=== PATIENT | female | born 1960 | race Caucasian/White ===

== ENCOUNTER → 2017-08-06 | Emergency (ER) | payer OTHER ==
[~2017-08-06] VITALS: Ht 152.4 cm; Wt 90.7 kg
[~2017-08-06] MED LIST: BEVESPI AEROS10.7 GM; IPRAT-ALBUT 0.5-3 ML IH; MEDROLPACK PO; MUCINEX D ER 11 EACH PO; NICOTINE P1 PATCH .1; ORPH100T PO; PROMETH-CODEIN 65 ML PO; VENTOLIN HFA18 GM
== END | disposition home or self-care (01) ==
LOC: ER 12:47
DX: J45.30 Mild persistent asthma, uncomplicated (principal)

== ENCOUNTER 2017-08-26 12:12 | Inpatient (IN) | payer OTHER ==
[~2017-08-26] VITALS: Ht 154.9 cm; Wt 93.9 kg
[2017-08-26] MEDS ORDERED: MUCUS RELIEF400 MG (12:23)
[2017-08-26] MEDS ORDERED: PREDNISOLO20 MG/5 ML (12:24)
[2017-08-26] MEDS ORDERED: BEVESPI AEROS10.7 GM (12:24)
[2017-08-26] MEDS ORDERED: VENTOLIN HFA18 GM (12:24)
[2017-08-31] MEDS ORDERED: MEDROLPACK PO (15:46)
== END 2017-08-31 17:11 | disposition home or self-care (01) | DRG 202 ==
LOC: ER 12:12 → MEDJ 08-27 11:04
PROC: 3E0F7GC Introduction of Other Therapeutic Substance into Respiratory Tract, Via Natural or Artificial Opening (ICD-10-PCS; principal; 2017-08-27)
DX: J45.31 Mild persistent asthma with (acute) exacerbation (principal); J44.1 Chronic obstructive pulmonary disease with (acute) exacerbation; R09.02 Hypoxemia; E11.65 Type 2 diabetes mellitus with hyperglycemia; T38.0X5A Adverse effect of glucocorticoids and synthetic analogues, initial encounter; E07.89 Other specified disorders of thyroid

== ENCOUNTER 2017-12-24 12:00 | Emergency (ER) | payer OTHER ==
[~2017-12-24] VITALS: Ht 160 cm; Wt 93.0 kg
[~2017-12-24 12:00] MED LIST changes: +MUCUS RELIEF400 MG; +PREDNISOLO20 MG/5 ML; +TRELEGY ELLIPT1 EACH IH
== END 2017-12-24 16:07 | disposition home or self-care (01) ==
LOC: ER 12:00
DX: J45.31 Mild persistent asthma with (acute) exacerbation (principal)

== ENCOUNTER 2018-01-15 08:46 | Inpatient (IN) | payer OTHER ==
[~2018-01-15] VITALS: Ht 154.9 cm; Wt 95.3 kg
[2018-01-20] MEDS ORDERED: MEDROLPACK PO (09:21)
[2018-01-20] MEDS ORDERED: VENTOLIN HFA18 GM IH (09:21)
== END 2018-01-20 16:30 | disposition home or self-care (01) | DRG 202 ==
LOC: ER 08:46 → MEDJ 22:05
PROC: 3E0F7GC Introduction of Other Therapeutic Substance into Respiratory Tract, Via Natural or Artificial Opening (ICD-10-PCS; 2018-01-15)
PROC: 4A033R1 Measurement of Arterial Saturation, Peripheral, Percutaneous Approach (ICD-10-PCS; principal; 2018-01-16)
DX: J45.41 Moderate persistent asthma with (acute) exacerbation (principal); J44.1 Chronic obstructive pulmonary disease with (acute) exacerbation; E11.65 Type 2 diabetes mellitus with hyperglycemia; E66.01 Morbid (severe) obesity due to excess calories